=== PATIENT | male | born 2000 | race Caucasian/White ===

== ENCOUNTER 2018-01-01 17:08 | Emergency (ER) | payer OTHER ==
[2018-01-01 17:15] VITALS: RESP 18; TEMP 98.6
[2018-01-01] MEDS ORDERED: PROPARACAINE 0.5% 15 ML OPHT DROP ONE (17:19)
--- NOTE | 2018-01-01 17:35 | EDPHY ---
HPI/HX/ROS/PE/MDM Narrative: CHIEF COMPLAINT: Right eye injury HPI: The patient is a 17 y/o male arriving with his friend complaining of right eye pain from an injury 1 hour ago. He says, "I was just sitting in bed and a picture frame fell off the wall and the corner of it went into my eye, which was open." He had immediate pain in his right eye with some blurred vision. The frame also struck his chin, but did not cause other injuries. He is nearly blind in his left eye from amblyopia, but confirms he is still able to see out of his right right eye currently despite blurriness. Right now he has stinging and dull throbbing pain in his eye. He is normally healthy. REVIEW OF SYSTEMS: Aside from elements discussed in the HPI, a comprehensive 10-point review of systems was reviewed and is negative. 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 Mother is a PA. PHYSICAL EXAM: General:Patient is alert, in no acute distress. ENT: ENT inspection normal. Eyes: Visual Acuity: noted from Nurse's notes. Pupils: equal round and reactive to light, EOMI Lids: no edema or swelling Skin: no proptosis, no periorbital erythema or swelling, no vesicles Conjunctivae: Right eye has diffuse subconjunctival hemorrhage Cornea: exam with fluorescein shows no abrasion or laceration Anterior chamber:normal, no hyphema or hypopyon. Neck: Normal inspection. Full range of motion. Respiratory:No respiratory distress. Cardiovascular: Normal cap refill. Skin: Normal color. No rash. Warm and dry. Extremities: Normal appearance. Full range of motion. Neuro: Oriented x3. Normal motor function. Normal sensory function. ED Course: This is a healthy 17 y/o male with left eye blindness at baseline who presents with an acute right eye injury after a picture frame fell and struck his eye this afternoon. He has subconjunctival hemorrhage of his right eye on exam with no hyphema and normal pupil. No corneal abrasion or laceration on slit lamp exam. No signs of penetrating globe injury. Consulted with Dr. Mckeon, claim agent. He will seem him in his office on Thursday at 8:30 for follow up. He recommends cold compresses and Lotemax eyedrops in the meantime. Discussed this with the patient and his mother via phone. He is comfortable with plan for follow up. Return precautions discussed. General Time Seen by Provider: 01/01/18 17:15 Initial Vital Signs: Initial Vital Signs Temperature (C) 37.0 C 01/01/18 17:12 Heart Rate 97 01/01/18 17:12 Respiratory Rate 18 01/01/18 17:12 Blood Pressure 147/77 H 01/01/18 17:12 O2 Sat (%) 97 01/01/18 17:12 O2 Delivery Mode Room Air Allergies/Adverse Reactions: No Known Allergies Allergy (Unverified 01/01/18 17:21) Home Medications: Medication Instructions Recorded Gabapentin 01/01/18 Loteprednol 0.5% [Lotemax 0.5%] 2 drops OP BID 7 Days opht.btl 01/01/18 Prozac 10 MG (*) 01/01/18 Wellbutrin 100mg SR (*) 01/01/18 Departure - Departure Disposition: Home, Routine, Self-Care Clinical Impression: Chemosis of conjunctiva Qualifiers: Laterality: right Qualified Code(s): H11.421 - Conjunctival edema, right eye Condition: Good Instructions: Subconjunctival Hemorrhage (ED) Additional Instructions: 1. Apply cold compresses several times per day until follow up. 2. Use Lotemax drops as directed in the affected eye. 3. Follow up with Dr. Mckeon, claim agent, on Thursday morning at 08:30 without fail. 4. Return to the ED for severe pain, loss of vision, dramatic increase in swelling, or other worsening of condition. Referrals: Ryan Mckeon MD [Medical Doctor] - As per Instructions Prescriptions: Loteprednol 0.5% [Lotemax 0.5%] 2 drops OP BID 7 Days opht.btl Report Scribed for: Aguila Senior Report Scribed by: Swati Felix Date of Report: 01/01/18 Time of Report: 17:35 Physician Review and Approval Statement: Portions of this note were transcribed by an ED scribe. I personally performed the history, physical exam, and medical decision making; and confirm the accuracy of the information in the transcribed note.
[2018-01-01 18:45] VITALS: BP 117/62; PULSE 90; O2SAT 95
== END 2018-01-01 18:44 | disposition home or self-care (01) ==
DX: H11.421 Conjunctival edema, right eye (principal); W20.8XXA Other cause of strike by thrown, projected or falling object, initial encounter; Y99.8 Other external cause status; Y93.89 Activity, other specified

== ENCOUNTER 2018-08-24 18:20 | Observation (INO) | payer BC, OTHER ==
[2018-08-24] MEDS ORDERED: NS 1,000 ML IV ONE ×2 (18:37)
[2018-08-24] MEDS ORDERED: KETOROLAC 30 MG/1 ML SDV IVP ONE (18:38)
[2018-08-24] MEDS ORDERED: DEXAMETHASONE 10 MG/ML VIAL IVP ONE (18:38)
[2018-08-24] MEDS ORDERED: AMPICILLIN/SULBACTAM 3 GM in NS 100 ML IV ONE (18:39)
--- NOTE | 2018-08-24 18:39 | EDPHY ---
H & P Stated Complaint: flu like symptoms/cough st Time Seen by Provider: 08/24/18 18:35 HPI/ROS: HPI: This is a 18-year-old male who presents with Chief Complaint: flu like symptoms/cough/st Location: Throat Quality: pain Duration: Since Thursday Signs and Symptoms: + fever, + nausea, no vomiting, no diarrhea, no urinary symptoms, no chest pain, no shortness of breath, no wheezing, + nonproductive cough, no neck stiffness, no joint pain, + swollen glands, no ear pain, no rash , no drooling Timing: Worsening Severity: Moderate to severe Context: Patient is a student at [employer], [place] presents with 3 day history sore throat, body aches, fever of 102 F T-max at home, nonproductive cough, swollen glands. He was started on Augmentin Thursday evening by physician assistant professor of dietetics but no strep test or flu test was ordered. Patient reports that his throat continues to become more swollen. Moderate pain with any swallowing even his saliva. No minimal to no intake of food and liquids over the last 48 hr. He reports that he became nauseous and vomited ibuprofen today. Denies neck stiffness/headache/diarrhea/abdominal pain. Modifying Factors: Augmentin Comment: ROS: A comprehensive 10 system review of systems is otherwise negative aside from elements mentioned in the history of present illness. MEDICAL/SURGICAL/SOCIAL HISTORY: Medical history: blind in L eye (non injured side) Surgical history: Denies Social history: Nonsmoker. Denies drug use. Family history noncontributory. CONSTITUTIONAL: Ill but nontoxic-appearing young adult white male, awake and alert, no obvious distress HEENT: Atraumatic and normocephalic, PERRL, EOMI. Nares patent; no rhinorrhea; no nasal mucosal edema. Tympanic membranes clear. Oropharynx clear, strawberry tongue noted; tonsils 3+ touching uvula with moderate erythema and white exudate; uvula midline; dry oral mucosa and cracked lips. Airway patent. Moderate anterior cervical lymphadenopathy. No meningismus. No malocclusion. Able to open mouth 2 finger widths wide. Cardiovascular: Normal S1/S2, tachycardia, regular rhythm, without murmur rub or gallop. PULMONARY/CHEST: Symmetrical and nontender. Clear to auscultation bilaterally. Good air movement. No accessory muscle usage. ABDOMEN: Soft, nondistended, nontender, no rebound, no guarding, no peritoneal signs, no masses or organomegaly. No CVAT. EXTREMITIES: 2/2 pulses, strength 5/5, no deformities, no clubbing, no cyanosis or edema. NEUROLOGICAL: no focal neuro deficits. GCS 15. Speech is clear. SKIN: Warm and dry, no erythema. no rash. Good capillary refill. Source: Patient Exam Limitations: No limitations - Medical/Surgical History Hx Asthma: No Hx Chronic Respiratory Disease: No Hx Diabetes: No Hx Cardiac Disease: No Hx Renal Disease: No Hx Cirrhosis: No Hx Alcoholism: No Hx HIV/AIDS: No Hx Splenectomy or Spleen Trauma: No Other PMH: blind in L eye (non injured side) - Social History Smoking Status: Never smoked Constitutional: Initial Vital Signs Temperature (C) 38.2 C 08/24/18 18:24 Heart Rate 119 H 08/24/18 18:24 Respiratory Rate 18 08/24/18 18:24 Blood Pressure 101/52 L 08/24/18 18:24 O2 Sat (%) 97 08/24/18 18:24 O2 Delivery Mode Room Air Allergies/Adverse Reactions: No Known Allergies Allergy (Verified 08/24/18 18:21) Home Medications: Medication Instructions Recorded Augmentin 875 MG TAB (*) 08/24/18 Medical Decision Making ED Course/Re-evaluation: Vital signs reviewed and show tachycardia. Afebrile. IV access and laboratory studies including mono along with strep and influenza test and CT soft tissue neck with contrast ordered to evaluate for abscess No signs of meningitis. Given 2 L normal saline, IV Toradol 30 mg, IV Decadron 10 mg, IV Unasyn 3 g, 15 mL viscous lidocaine 191: Labs reviewed. Positive mononucleosis, WBC 12 K, lactic acid 1.3, negative strep. No anemia/electrolyte imbalance/acute kidney injury/platelet dysfunction 1999: Called by radiologist, Poncho Correa, who reports that CT soft tissue of the neck shows no abscess but does show extremely large tonsillar hypertrophy and edema with airway constriction. : ED decision to consult for admission for infectious mononucleosis, tonsillitis, inability to tolerate oral intake. Spoke with Hospitalist, Dr. James, who kindly agrees to admit patient and provide further care. This patient was seen under the supervision of my secondary supervising physician. I evaluated care for this patient independently. Discussed this patient with Dr. Senior. Differential Diagnosis: Differential diagnosis includes but is not limited to sepsis, strep tonsillitis , postpharyngeal abscess, Thomas's angina. - Data Points Laboratory Results: Laboratory Results 08/24/18 18:45 08/24/18 18:45 08/24/18 08/24/18 08/24/18 Unknown 18:45 18:45 WBC RBC Hgb Hct MCV MCH MCHC RDW Plt Count MPV Neut % (Auto) Lymph % (Auto) [place] % (Auto) Eos % (Auto) Baso % (Auto) Nucleat RBC Rel Count Absolute Neuts (auto) Absolute Lymphs (auto) Absolute Monos (auto) Absolute Eos (auto) Absolute Basos (auto) Absolute Nucleated RBC Immature Gran % Immature Gran # Platelet Estimate VBG Lactic Acid Sodium Potassium Chloride Carbon Dioxide Anion Gap BUN Creatinine Estimated GFR Glucose Calcium Nasal Influenza A PCR NEGATIVE FOR FLU A (NEGATIVE) Nasal Influenza B PCR NEGATIVE FOR FLU B (NEGATIVE) Monoscreen POSITIVE H (NEGATIVE) Group A Strep Screen Group A Strep DNA Pending 08/24/18 08/24/18 08/24/18 18:45 18:45 18:45 WBC 11.48 10^3/uL H 10^3/uL (3.80-9.50) RBC 4.73 10^6/uL 10^6/uL (4.40-6.38) Hgb 13.9 g/dL g/dL (13.7-17.5) Hct 39.3 % L % (40.0-51.0) MCV 83.1 fL fL (81.5-99.8) MCH 29.4 pg pg (27.9-34.1) MCHC 35.4 g/dL g/dL (32.4-36.7) RDW 12.2 % % (11.5-15.2) Plt Count 261 10^3/uL 10^3/uL (150-400) MPV 8.9 fL fL (8.7-11.7) Neut % (Auto) Pending Lymph % (Auto) Pending [place] % (Auto) Pending Eos % (Auto) Pending Baso % (Auto) Pending Nucleat RBC Rel Count Pending Absolute Neuts (auto) Pending Absolute Lymphs (auto) Pending Absolute Monos (auto) Pending Absolute Eos (auto) Pending Absolute Basos (auto) Pending Absolute Nucleated RBC Pending Immature Gran % Pending Immature Gran # Pending Platelet Estimate Pending VBG Lactic Acid 1.3 mmol/L mmol/L (0.7-2.1) Sodium 139 mEq/L mEq/L (135-145) Potassium 4.1 mEq/L mEq/L (3.3-5.0) Chloride 100 mEq/L mEq/L (97-110) Carbon Dioxide 24 mEq/l mEq/l (22-31) Anion Gap 15 mEq/L H mEq/L (6-14) BUN 11 mg/dL mg/dL (7-23) Creatinine 0.8 mg/dL mg/dL (0.7-1.3) Estimated GFR > 60 Glucose 105 mg/dL H mg/dL (70-100) Calcium 9.1 mg/dL mg/dL (8.5-10.4) Nasal Influenza A PCR Nasal Influenza B PCR Monoscreen Group A Strep Screen Group A Strep DNA 08/24/18 18:37 WBC RBC Hgb Hct MCV MCH MCHC RDW Plt Count MPV Neut % (Auto) Lymph % (Auto) [place] % (Auto) Eos % (Auto) Baso % (Auto) Nucleat RBC Rel Count Absolute Neuts (auto) Absolute Lymphs (auto) Absolute Monos (auto) Absolute Eos (auto) Absolute Basos (auto) Absolute Nucleated RBC Immature Gran % Immature Gran # Platelet Estimate VBG Lactic Acid Sodium Potassium Chloride Carbon Dioxide Anion Gap BUN Creatinine Estimated GFR Glucose Calcium Nasal Influenza A PCR Nasal Influenza B PCR Monoscreen Group A Strep Screen NEGATIVE (NEGATIVE) Group A Strep DNA Medications Given: Discontinued Medications Dexamethasone (Decadron Injection) 10 mg IVP EDNOW ONE Stop: 08/24/18 18:39 Last Admin: 08/24/18 18:45 Dose: 10 mg Sodium Chloride (Ns) 1,000 mls @ 0 mls/hr IV ONCE ONE; Wide Open PRN Reason: Protocol Stop: 08/24/18 18:38 Last Admin: 08/24/18 18:46 Dose: 1,000 mls Sodium Chloride (Ns) 1,000 mls @ 0 mls/hr IV ONCE ONE; Wide Open PRN Reason: Protocol Stop: 08/24/18 18:38 Last Admin: 08/24/18 18:46 Dose: 1,000 mls Ampicillin Sodium/Sulbactam (Sodium 3 gm/ Sodium Chloride) 100 mls @ 200 mls/ hr IV EDNOW ONE PRN Reason: Protocol Stop: 08/24/18 19:08 Last Admin: 08/24/18 19:40 Dose: 100 mls Ketorolac Tromethamine (Toradol) 30 mg IVP EDNOW ONE Stop: 08/24/18 18:39 Last Admin: 08/24/18 18:45 Dose: 30 mg Lidocaine (Lidocaine 2% Viscous) 15 ml PO EDNOW ONE Stop: 08/24/18 18:54 Last Admin: 08/24/18 18:59 Dose: 15 ml Departure - Departure Disposition: [facility] Inpatient Acute Clinical Impression: Acute tonsillitis due to infectious mononucleosis, Decreased oral intake Condition: Fair
[2018-08-24] MEDS ORDERED: IOPAMIDOL (ISOVUE-300) 100 ML BTL ONE ×2 (18:40→19:16)
[2018-08-24] MEDS ORDERED: LIDOCAINE 2% VISCOUS 15 ML UDCUP PO ONE (18:53)
[2018-08-24 19:07] LABS: PLATELET COUNT 261 10^3/uL (150-400)
[2018-08-24] MEDS ORDERED: HYDROmorphONE/DILAUDID 1 MG/ML INJ IVP PRN (20:42)
[2018-08-24] MEDS ORDERED: ONDANSETRON DISINTEGRATING 4 MG TAB PO PRN (20:42)
[2018-08-24] MEDS ORDERED: ONDANSETRON 4 MG/2 ML VIAL IVP PRN (20:42)
[2018-08-24] MEDS ORDERED: NS 1,000 ML IV SCH (20:45)
--- NOTE | 2018-08-24 20:45 | PDGENHP ---
History and Physical - Chief Complaint Fatigue, Fever, swollen glands - History of Present Illness Steve Melendez is a 18 yo M with no significant PMHx who presents to [facility] for fever, fatigue, and swollen glands. Patient reports that 3 days ago he began to experience sore throat, body aches, fever (up to 102), non-productive cough, and swollen neck glands. He was started on Augmentin yesterday evening without improvement in symptoms. Today he reports increasing throat pain with swallowing and was not able to eat or drink. He reports episode of nausea and vomiting when he took ibuprofen earlier today. He denies any chest pain, SOB, d /c, edema. History Information - Allergies/Home Medication List Allergies/Adverse Reactions: No Known Allergies Allergy (Verified 08/24/18 18:21) Home Medications: Augmentin 875 MG TAB (*) 08/24/18 [Last Taken Unknown] I have personally reviewed and updated: family history, medical history, social history, surgical history - Past Medical History no pertinent PMH - Surgical History Reports: no pertinent surgical hx - Family History Positive for: non-pertinent - Social History Smoking Status: Never smoked Review of Systems Review of Systems: ROS: 10pt was reviewed & negative except for what was stated in HPI & below Physical Exam Physical Exam: Temp Pulse Resp BP Pulse Ox 37.9 C 98 20 138/65 H 94 08/24/18 19:42 08/24/18 19:42 08/24/18 19:42 08/24/18 19:42 08/24/18 19:42 Constitutional: no apparent distress Eyes: PERRL Ears, Nose, Mouth, Throat: dry mucous membranes, other (enlarged tonsils b/l ) Cardiovascular: tachycardia Respiratory: no respiratory distress Gastrointestinal: No distension Genitourinary: No gomez in urethra Skin: warm, normal color Musculoskeletal: full muscle strength Neurologic: AAOx3 Psychiatric: interacting appropriately Lymph, Heme, Immunologic: No no cervical LAD Lab Data & Imaging Review 08/24/18 18:45 08/24/18 18:45 WBC 11.48 10^3/uL (3.80-9.50) H 08/24/18 18:45 RBC 4.73 10^6/uL (4.40-6.38) 08/24/18 18:45 Hgb 13.9 g/dL (13.7-17.5) 08/24/18 18:45 Hct 39.3 % (40.0-51.0) L 08/24/18 18:45 MCV 83.1 fL (81.5-99.8) 08/24/18 18:45 MCH 29.4 pg (27.9-34.1) 08/24/18 18:45 MCHC 35.4 g/dL (32.4-36.7) 08/24/18 18:45 RDW 12.2 % (11.5-15.2) 08/24/18 18:45 Plt Count 261 10^3/uL (150-400) 08/24/18 18:45 MPV 8.9 fL (8.7-11.7) 08/24/18 18:45 Neut % (Auto) 61.2 % (39.3-74.2) 08/24/18 18:45 Lymph % (Auto) 29.1 % (15.0-45.0) 08/24/18 18:45 [place] % (Auto) 8.7 % (4.5-13.0) 08/24/18 18:45 Eos % (Auto) 0.3 % (0.6-7.6) L 08/24/18 18:45 Baso % (Auto) 0.4 % (0.3-1.7) 08/24/18 18:45 Nucleat RBC Rel Count 0.0 % (0.0-0.2) 08/24/18 18:45 Absolute Neuts (auto) 7.02 10^3/uL (1.70-6.50) H 08/24/18 18:45 Absolute Lymphs (auto) 3.34 10^3/uL (1.00-3.00) H 08/24/18 18:45 Absolute Monos (auto) 1.00 10^3/uL (0.30-0.80) H 08/24/18 18:45 Absolute Eos (auto) 0.03 10^3/uL (0.03-0.40) 08/24/18 18:45 Absolute Basos (auto) 0.05 10^3/uL (0.02-0.10) 08/24/18 18:45 Absolute Nucleated RBC 0.00 10^3/uL (0-0.01) 08/24/18 18:45 Immature Gran % 0.3 % (0.0-1.1) 08/24/18 18:45 Seg Neutrophils % 44.0 % 08/24/18 18:45 Band Neutrophils % 18.0 % 08/24/18 18:45 Lymphocytes % 26.0 % 08/24/18 18:45 Monocytes % 10.0 % 08/24/18 18:45 Eosinophils % 2.0 % 08/24/18 18:45 Basophils % 0.0 % 08/24/18 18:45 Metamyelocytes % 0.0 % 08/24/18 18:45 Myelocytes % 0.0 % 08/24/18 18:45 Promyelocytes % 0.0 % 08/24/18 18:45 Blast Cells % 0.0 % 08/24/18 18:45 Immature Gran # 0.04 10^3/uL (0.00-0.10) 08/24/18 18:45 Absolute Seg Neuts 5.05 10^3/uL (1.70-6.50) 08/24/18 18:45 Absolute Band Neuts 2.07 10^3/uL (0.00-0.70) H 08/24/18 18:45 Absolute Lymphocytes 2.98 10^3/uL (1.00-3.00) 08/24/18 18:45 Absolute Monocytes 1.15 10^3/uL (0.30-0.80) H 08/24/18 18:45 Absolute Eosinophils 0.23 10^3/uL (0.03-0.40) 08/24/18 18:45 Absolute Basophils 0.00 10^3/uL (0.02-0.10) L 08/24/18 18:45 Absolute Metamyelocyte 0.00 10^3/mL (0.00-0.00) 08/24/18 18:45 Absolute Myelocytes 0.00 10^3/mL (0.00-0.00) 08/24/18 18:45 Absolute Promyelocytes 0.00 10^3/uL (0.00-0.00) 08/24/18 18:45 Absolute Plasma Cells 0.00 10^3/uL (0.00-0.00) 08/24/18 18:45 RBC/WBC/PLT Morphology NORMAL (NORMAL) 08/24/18 18:45 Atypical Lymphocytes 1+ H 08/24/18 18:45 Absolute Blast Cells 0.00 10^3/uL (0.00-0.00) 08/24/18 18:45 Plasma Cells % 0.0 % 18 18:45 Platelet Estimate ADEQUATE (ADEQ) 08/24/18 18:45 Giant Platelets PRESENT H 08/24/18 18:45 VBG Lactic Acid 1.3 mmol/L (0.7-2.1) 08/24/18 18:45 Sodium 139 mEq/L (135-145) 08/24/18 18:45 Potassium 4.1 mEq/L (3.3-5.0) 08/24/18 18:45 Chloride 100 mEq/L (97-110) 08/24/18 18:45 Carbon Dioxide 24 mEq/l (22-31) 08/24/18 18:45 Anion Gap 15 mEq/L (6-14) H 08/24/18 18:45 BUN 11 mg/dL (7-23) 08/24/18 18:45 Creatinine 0.8 mg/dL (0.7-1.3) 08/24/18 18:45 Estimated GFR > 60 08/24/18 18:45 Glucose 105 mg/dL (70-100) H 08/24/18 18:45 Calcium 9.1 mg/dL (8.5-10.4) 18 18:45 Nasal Influenza A PCR NEGATIVE FOR FLU A (NEGATIVE) 08/24/18 18:45 Nasal Influenza B PCR NEGATIVE FOR FLU B (NEGATIVE) 08/24/18 18:45 Monoscreen POSITIVE (NEGATIVE) H 18 18:45 Group A Strep Screen NEGATIVE (NEGATIVE) 08/24/18 18:37 Assessment & Plan Assessment: Acute tonsillitis due to infectious mononucleosis (Acute) - Symptoms for 3 days, worsening sore throat today - Monospot positive on admission - CT Neck shows significantly enlarged tonsils b/l causing oropharyngeal and hypopharyngeal constriction - Patient saturating well on RA, no signs of respiratory distress - S/p Unasyn in ED due to concern for abscess which was not present, will d/c abx - S/p 10 mg IV Decadron in ED for airway compromise, will continue 4 mg q6 hours overnight, likely d/c in the AM if respiratory status continues to improve - Continue supportive care with IVF, PRN antiemetics and analgesics Decreased oral intake (Acute) - 2/2 mononucleosis and acute tonsillitis above - Continue IVF overnight FEN: IVF, NPO PPx: SCDs Code: FULL Dispo: Admit to Observation, pending clinical course
[2018-08-24] MEDS: ACETAMINOPHEN 325 MG TAB PO PRN (21:38)
[2018-08-24] MEDS ORDERED: MELATONIN 3 MG TAB PO PRN (23:15)
[2018-08-24] MEDS: DEXAMETHASONE 4 MG/ML VIAL IVP SCH (23:28)
[2018-08-25] MEDS: DEXAMETHASONE 4 MG/ML VIAL IVP SCH (05:02)
[2018-08-25] MEDS: ACETAMINOPHEN 325 MG TAB PO PRN (08:17)
[2018-08-25] MEDS ORDERED: CEPACOL LOZENGE PO PRN (08:26)
[2018-08-25 08:42] VITALS: BP 123/69
--- NOTE | 2018-08-25 13:25 | GDS ---
DISCHARGE DIAGNOSES: 1. Mononucleosis. 2. Mild leukocytosis. 3. Dysphagia. 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 He developed these symptoms about a week ago, had a temperature up to 102. Reports nonproductive cough. He was started on Augmentin yesterday evening without improvements. He came to the ER because he was not able to eat or drink due to difficulty swallowing. HOSPITAL COURSE BY PROBLEM: 1. Mononucleosis: Supportive care. IV fluids, Advil, Tylenol. He was advised to avoid contact spo rts including skiing. I conveyed this to his mother as well. LFTs were within normal. 2. Dysphagia: CT neck showed paratonsillar edema, but no abscess or fluid collection. Symptoms are much improved on dexamethasone. Will send home for few more days and Advil as well. DISPOSITION: Patient is stable for discharge home with his mother. NEW MEDICATIONS: Dexamethasone. FOLLOWUP: Primary care physician. PHYSICAL EXAM: VITAL SIGNS: Today temperature is 36.6, blood pressure 123/69, heart rate in the 70s , respirations 18, 96% on room air. GENERAL: Ill-appearing but no acute distress. HEENT: PERRLA. Oropharynx significantly swollen tonsils with mild exudate but airways open. No stridor. CV: Regul ar rate and rhythm. LUNGS: Clear. ABDOMEN: Soft, nontender, nondistended. No splenomegaly. : No [place]. Musculoskeletal: 5/5 upper lower extremity strength. NEURO: 2 through 12 intact. DISPOSITION: Time spent on discharge greater than 30 minutes counseling patient and mother on phone for supportive care and precautions. /[id number]
== END 2018-08-25 11:33 | disposition home or self-care (01) ==
LOC: INTOOBSV 20:05 → F3E 21:24
PROVIDERS: ADMIT Internal Medicine; ATTEND Internal Medicine
DX: B27.90 Infectious mononucleosis, unspecified without complication (principal); J03.80 Acute tonsillitis due to other specified organisms; D72.829 Elevated white blood cell count, unspecified; R13.12 Dysphagia, oropharyngeal phase; E86.0 Dehydration
CPT/HCPCS: 70491; 96361; 96374; 96375; 96376; 99285; G0378; J0295; J1100; J1885; Q9967